=== PATIENT | male | born 1965 | race Caucasian/White ===

== ENCOUNTER 2024-10-07 12:05 | Day surgery (SDC) | payer OTHER, SELFPAY ==
[2024-10-07 12:10] VITALS: BP 142/87; PULSE 104; RESP 22; TEMP 36.5; O2SAT 96
--- NOTE | 2024-10-07 12:42 | PDOC.DSDIS_ITS ---
Date of service: 10/07/24 Discharge Plan Disposition Patient Disposition: Home Condition: Good Discharge Details Reason For Visit: Right Dupuytrens Contracture Attending Provider: Daryl Garcia Primary Care Provider: LUIS GILBERT Home Meds and New Rx's Prescriptions: New hydrocodone-acetaminophen 5-325 mg tablet 1 tab PO Q6H PRN (Reason: severe pain) Qty: 6 0RF Rx Instructions: Take one tablet up to every 6 hours as needed for severe postoperative pain Continued lisinopril 2.5 mg tablet 2.5 mg PO DAILY nystatin 100,000 unit/gram powder 1 applic topical BID PRN sildenafil 100 mg tablet 100 mg PO DAILY PRN Rx Instructions: administer 30 minutes to 4 hours before activity cetirizine 10 mg tablet 10 mg PO DAILY PRN multivit with min-folic acid [Centrum Adults] PO DAILY ibuprofen 200 mg tablet 200 mg PO Q6H PRN Discharge Instructions Additional Instructions: Dupuytren's Contracture Discharge Instructions Activity: You may use your fingers for light activity. You should limit any excessive motion or forceful gripping until the sutures have been removed. Dressings: You should keep the initial surgical dressing in place for at least 3 days. You may remove your dressings and get the wound wet after 3 days. You should keep the dressings and the wound clean at all times. You may keep the initial dressing in place until your follow-up but keep the wound covered with light gauze until the sutures are removed. Medications: - You should take Tylenol and Ibuprofen around the clock as prescribed or per optical advisor's recommendations. - You have Hydrocodone prescribed for breakthrough pain control. Take only as needed and limit use as much as possible. This may cause constipation. Follow-up: 7-10 days for wound check and suture removal. Referrals: Daryl Garcia MD [ [facility] STAFF PHYSICIAN] - Activity:: Elevate Remove Dressings/Wound Care:: 72 hours Shower/Bathe:: 72 hours Diet:: As Tolerated Discharge Orders Discharge Orders: Discharge Order (Routine); Ordered 10/07/24 Ordered By: Shannon Chappell
[2024-10-07] MEDS: Lidocaine 1% Pres-Free W/EPI 1/200,000 10 ML VIAL (13:20)
[2024-10-07] MEDS: Sodium Bicarbonate 50 MEQ/50 ML VIAL (13:21)
[2024-10-07 13:35] VITALS: BP 143/83; PULSE 99; RESP 16; TEMP 36.3; O2SAT 95
--- NOTE | 2024-10-07 15:55 | W.PM.OP ---
Operative Note Operative Note PRE-OP DIAGNOSIS: Right Dupuytren's contracture POST-OP DIAGNOSIS: same PROCEDURE: Partial palmar fasciectomy of the right hand involving the little finger and the portion of ring finger ray SURGEON: Daryl Garcia ANESTHESIA TYPE: Local By Surgeon Refer to Anesthesia Record ESTIMATED BLOOD LOSS: 20 PATHOLOGY: none sent TOURNIQUET TIME: 0 COMPLICATIONS: None Patient was transported to: same day Patient's condition: stable Indications: Johnie is an active 58-year-old who has notable contracture about the little finger with prominent Dupuytren's contracture. Given the contracture I recommend proceeding with surgical release and he elected to partial palmar fasciectomy of the right hand involving the little finger and part of the ring finger. Findings: There is a large central cord of the little finger and ring finger ray. The little finger cord extended to a pretendinous position with a large nodule about the proximal?radial aspect of the base of the little finger. Procedure Description: Johnie was greeted in the preoperative holding area. His identity was confirmed and the correct site was identified and marked. The consent reviewed the patient and signed. He was taken to the operating room and kept on the stretcher but his right hand was placed onto a hand table. The right arm was then prepped with ChloraPrep and draped in a standard fashion. A timeout is performed for safe surgery. A proposed Tomasz type incision was made overlying the palm including both the central cords to the ring finger and the little finger and then extending up onto the little finger. This was then anesthetized with 1% lidocaine with epinephrine, buffered with sodium bicarbonate. Once anesthetic had set up, the surgery started. This comes and says sharply along the proposed surgical site. Deeper dissection was carried out with tenotomy scissors. I was able to dissect the fat overlying the central cord of the little finger to fully expose it. There was some bleeding noted as I dissected to the radial aspect of the cord and is fairly superficial position. The seem to be a small arterial branch which was cauterized bipolar. The entirety of the central cord. It was transected proximally and then elevated out of the palm all the way to the base of the little finger. Further dissection was carried out onto the little finger where the nodule about the radial aspect of the little finger was identified and dissected out. This was transected and removed. There were notable natatory contributions to the central cord which were also resected at that time. I then exposed the central cord extending to the ring finger. This was dissected away from the overlying skin and a section of the cord was removed. This removed from the nodularity and relax the ring finger. The wound was then thoroughly irrigated. There was some oozing from the wound bed but no arterial bleeding. The wound was then closed with 4-0 nylon. The wound was dressed with Xeroform, 4 x 4 gauze, conformer dressing, AlumaFoam splint to keep the finger extended followed by Brandi. At the end the case all counts were correct. He tolerated procedure well transferred back to the day surgery area in stable condition. Date of Procedure: 10/07/24
== END 2024-10-07 14:00 | disposition home or self-care (01) ==
PROVIDERS: PCP Nurse Practitioner Primary Care; Visit Provider Student in an Organized Health Care Education/Training Program
PROC: (CPT 26123; principal; 2024-10-07 14:00)
DX: M72.0 Palmar fascial fibromatosis [Dupuytren] (principal)
CPT/HCPCS: 26123; 26125; J2004